=== PATIENT | male | born 1955 | race Native Hawaiian/Other Pacific Islander ===

== ENCOUNTER 2021-07-16 08:56 | Outpatient (CLI) | payer OTHER ==
[2021-07-16 09:30] LABS: PLATELET COUNT 219 K/uL (142-355)
[2021-07-16 10:30] LABS: POTASSIUM 4.3 mmol/L (3.6-5.2)
== END 2021-07-16 19:21 | disposition home or self-care (01) ==
LOC: LABW 08:56
PROVIDERS: ATTEND Internal Medicine Endocrinology, Diabetes & Metabolism
DX: R97.20 Elevated prostate specific antigen [PSA] (principal); E23.0 Hypopituitarism
CPT/HCPCS: 36415; 80053; 84153; 84402; 84439; 84443; 84480; 85027